=== PATIENT | female | born 1960 | race Hispanic/Latino ===

== ENCOUNTER 2023-07-14 19:49 | Inpatient (IN) | payer OTHER ==
[~2023-07-14] VITALS: Ht 144.8 cm; Wt 74.5 kg
[2023-07-14 22:05] LABS: APPEARANCE,URINE CLEAR (CLEAR); BILIRUBIN,URINE NEGATIVE (NEGATIVE); COLOR,URINE YELLOW (YELLOW); GLUCOSE, URINE (UA) 500 mg/dL (NEGATIVE); KETONES,URINE >=80 mg/dL (NEGATIVE); LEUKOCYTE ESTERASE ,URINE NEGATIVE Leu/uL (NEGATIVE); NITRATE,URINE NEGATIVE (NEGATIVE); OCCULT BLOOD,URINE SMALL (NEGATIVE); PROTEIN,URINE 30 mg/dL (NEGATIVE)
[2023-07-14 22:06] LABS: ADD UA MICROSCOPIC YES
[2023-07-14 22:08] LABS: BACTERIA,URINE RARE /HPF (None Seen); MUCUS,URINE RARE LPF (None Seen); SQUAMOUS EPITHELIAL CELL,UR RARE /HPF (0-2)
[2023-07-15 02:56] LABS: BASOPHILS # (AUTO) 0.07 K/uL (0.00-0.20); BASOPHILS % (AUTO) 0.5 % (0.0-5.0); HEMATOCRIT 33.6 % (36-48); IMMATURE GRANULOCYTE ABSOLUTE 0.22 K/uL (0-1); LYMPHOCYTES # (AUTO) 3.1 K/uL (1.0-4.8); LYMPHOCYTES % (AUTO) 19.9 % (21.0-51.0); MEAN CORPUSCULAR HEMOGLOBIN 27.2 pg (27.0-33.0); MEAN CORPUSCULAR HGB CONC 33.9 g/dL (32.0-36.0); MEAN CORPUSCULAR VOLUME 80.2 fL (79-99); MONOCYTES # (AUTO) 0.5 K/uL (0.1-1.0); MONOCYTES % (AUTO) 2.9 % (3.0-13.0); NEUTROPHILS # (AUTO) 11.6 K/uL (1.8-7.7); NEUTROPHILS % (AUTO) 75.3 % (40.0-77.0); PLATELET COUNT (AUTO) 145 K/uL (130-400); RED BLOOD CELL COUNT(AUTO) 4.19 MIL/uL (4.00-5.50); RED CELL DISTRIBUTION WIDTH 14.7 % (11.0-15.5); WHITE BLOOD COUNT (AUTO) 15.4 K/uL (4.8-10.8)
[2023-07-15 02:59] LABS: CREATININE 0.6 mg/dL (0.5-1.5); POTASSIUM 3.2 mmol/L (3.5-5.1)
[2023-07-15 03:04] LABS: ALBUMIN 2.3 g/dL (3.5-5.0); BILIRUBIN,TOTAL 0.5 mg/dL (0.2-1.0); TOTAL PROTEIN, SERUM 6.4 g/dL (6.0-8.3)
[2023-07-15] MEDS: ACETAMINOPHEN 325 MG TAB PO ONE (03:42)
[2023-07-15] MEDS: METOCLOPRAMIDE 10 MG/2 ML VIAL IVP ONE (05:42)
[2023-07-15] MEDS: KETOROLAC 15MG/ML VIAL (15MG/ML) IV ONE (05:42)
[2023-07-15] MEDS: FAMOTIDINE 20MG VIAL IV ONE (05:42)
[2023-07-15] MEDS: 0.9%NACL 1000ML 2,205 ML IV ONE (06:53)
[2023-07-15] MEDS: CEFTRIAXONE 2GM VIAL IVPB ONE (06:53)
[2023-07-15] MEDS ORDERED: CEFTRIAXONE 2GM VIAL IVPB ONE (09:30)
[2023-07-15] MEDS ORDERED: ACETAMINOPHEN WITH CODEINE 1 TAB TAB PO PRN (11:00)
[2023-07-15] MEDS: LACTATED RINGERS 1000ML 1,000 ML IV ONE (11:45)
[2023-07-15] MEDS: LACTATED RINGERS 1000ML 1,000 ML IV SCH (12:33)
[2023-07-15] MEDS: ZOSYN 3.375GM+NS 50ML 50 ML IV SCH (14:36)
[2023-07-15 15:20] VITALS: BP 149/85; PULSE 117; RESP 18
[2023-07-15 15:30] VITALS: O2SAT 96
[2023-07-15] MEDS ORDERED: LISI2.5T13 PO (16:02)
[2023-07-15] MEDS ORDERED: ATOR40TA69 PO (16:02)
[2023-07-15] MEDS ORDERED: GLIM4TAB36 PO (16:02)
[2023-07-15] MEDS ORDERED: SUMA100T16 PO (16:02)
[2023-07-15] MEDS: ACETAMINOPHEN WITH CODEINE 1 TAB TAB PO PRN (16:51)
[2023-07-15] MEDS ORDERED: POTASSIUM CHLORIDE 10% ELIXIR 20 MEQ/15 ML UDCUP PO PRN (19:00)
[2023-07-15 19:46] VITALS: BP 126/66; PULSE 100; RESP 17
[2023-07-15] MEDS: INSULIN HUMULIN R 100 UNIT/ML 3ML SQ SCH (21:10)
[2023-07-15] MEDS: KCL 20 MEQ ERTAB PO PRN (21:11)
[2023-07-15 23:44] VITALS: BP 123/62; PULSE 104; RESP 17
[2023-07-16] VITALS (8 sets, daily range): BP systolic 103–134; BP diastolic 61–81; PULSE 91–118; RESP 17–22; O2SAT 94–96
[2023-07-16 06:10] LABS: MEAN CORPUSCULAR HEMOGLOBIN 27.3 pg (27.0-33.0); MEAN CORPUSCULAR HGB CONC 33.2 g/dL (32.0-36.0); MEAN CORPUSCULAR VOLUME 82.1 fL (79-99); RED BLOOD CELL COUNT(AUTO) 4.14 MIL/uL (4.00-5.50); WHITE BLOOD COUNT (AUTO) 16.1 K/uL (4.8-10.8)
[2023-07-16 06:24] LABS: ALBUMIN 1.9 g/dL (3.5-5.0); BILIRUBIN,TOTAL 0.6 mg/dL (0.2-1.0); CREATININE 0.5 mg/dL (0.5-1.5); MAGNESIUM 1.5 mg/dL (1.80-2.40); POTASSIUM 3.5 mmol/L (3.5-5.1); TOTAL PROTEIN, SERUM 5.9 g/dL (6.0-8.3)
[2023-07-16] MEDS: ENOXAPARIN SODIUM 40 MG/0.4 ML SYRINGE SQ SCH ×2 (09:00)
[2023-07-16] MEDS ORDERED: KCL 20 MEQ ERTAB PO PRN (16:30)
[2023-07-16] MEDS ORDERED: POTASSIUM CHLORIDE 10% ELIXIR 20 MEQ/15 ML UDCUP PO PRN (16:30)
[2023-07-16] MEDS ORDERED: POTASSIUM CHLORIDE 20MEQ/100ML 100 ML IV PRN (16:30)
[2023-07-16] MEDS: SUMATRIPTAN SUCCINATE 100 MG PO PRN (16:32)
[2023-07-16] MEDS: LACTULOSE 20 GM/30 ML UDCUP PO PRN (17:35)
[2023-07-16] MEDS: MAGNESIUM 2GM PREMIX 50ML 50 ML IV PRN (17:52)
[2023-07-16] MEDS: ATORVASTATIN 40 MG TABLET PO SCH (20:18)
[2023-07-16] MEDS: LISINOPRIL 2.5 MG TABLET PO SCH (20:18)
[2023-07-17] VITALS (8 sets, daily range): BP systolic 105–148; BP diastolic 61–85; PULSE 87–106; RESP 16–20; O2SAT 95–96
[2023-07-17 06:16] LABS: HEMATOCRIT 31.6 % (36-48); MEAN CORPUSCULAR HEMOGLOBIN 26.9 pg (27.0-33.0); MEAN CORPUSCULAR HGB CONC 32.3 g/dL (32.0-36.0); MEAN CORPUSCULAR VOLUME 83.4 fL (79-99); RED BLOOD CELL COUNT(AUTO) 3.79 MIL/uL (4.00-5.50); RED CELL DISTRIBUTION WIDTH 15.6 % (11.0-15.5); WHITE BLOOD COUNT (AUTO) 15.5 K/uL (4.8-10.8)
[2023-07-17 06:43] LABS: CREATININE 0.6 mg/dL (0.5-1.5)
[2023-07-17 07:07] LABS: HEMOGLOBIN A1C 11.5 % (4.0-6.0)
[2023-07-17 07:39] LABS: POTASSIUM 2.9 mmol/L (3.5-5.1)
[2023-07-17] MEDS: GLIMEPIRIDE 2 MG TABLET PO SCH (07:46)
[2023-07-17] MEDS: ACETAMINOPHEN 500 MG TABLET PO ONE (11:38)
[2023-07-17] MEDS: DOXYCYCLINE 100MG+NS 250ML 250 ML IV SCH (12:37)
[2023-07-17] MEDS: POTASSIUM CHLORIDE 20MEQ/100ML 100 ML IV PRN (16:58)
[2023-07-17] MEDS: ENOXAPARIN SODIUM 40 MG/0.4 ML SYRINGE SQ SCH (18:21)
[2023-07-18] VITALS (9 sets, daily range): BP systolic 128–148; BP diastolic 74–97; PULSE 66–94; RESP 18–20; TEMP 99.5; O2SAT 95–97
[2023-07-18] MEDS: ACETAMINOPHEN 500 MG TABLET PO PRN (03:51)
[2023-07-18 10:25] LABS: BASOPHILS # (AUTO) 0.06 K/uL (0.00-0.20); BASOPHILS % (AUTO) 0.4 % (0.0-5.0); EOSINOPHILS # (AUTO) 0.04 K/uL (0.00-0.70); EOSINOPHILS % (AUTO) 0.3 % (0.0-8.0); HEMATOCRIT 31.7 % (36-48); IMMATURE GRANULOCYTE ABSOLUTE 0.17 K/uL (0-1); LYMPHOCYTES % (AUTO) 29.2 % (21.0-51.0); MEAN CORPUSCULAR HEMOGLOBIN 26.9 pg (27.0-33.0); MEAN CORPUSCULAR HGB CONC 33.1 g/dL (32.0-36.0); MEAN CORPUSCULAR VOLUME 81.1 fL (79-99); MONOCYTES # (AUTO) 0.7 K/uL (0.1-1.0); MONOCYTES % (AUTO) 4.8 % (3.0-13.0); NEUTROPHILS # (AUTO) 8.7 K/uL (1.8-7.7); NEUTROPHILS % (AUTO) 64.1 % (40.0-77.0); PLATELET COUNT (AUTO) 187 K/uL (130-400); RED BLOOD CELL COUNT(AUTO) 3.91 MIL/uL (4.00-5.50); RED CELL DISTRIBUTION WIDTH 15.5 % (11.0-15.5); WHITE BLOOD COUNT (AUTO) 13.7 K/uL (4.8-10.8)
[2023-07-18 10:33] LABS: ALBUMIN 1.7 g/dL (3.5-5.0); BILIRUBIN,TOTAL 0.7 mg/dL (0.2-1.0); CREATININE 0.5 mg/dL (0.5-1.5); MAGNESIUM 1.6 mg/dL (1.80-2.40); POTASSIUM 3.1 mmol/L (3.5-5.1)
[2023-07-18 12:27] LABS: BAND NEUTROPHILS % (MANUAL) 18 % (0-2); LYMPHOCYTES % (MANUAL) 19 % (22-44); MAN.DIFF COMMENT-IMPRESSION MANUAL DIFFERENTIAL; MONOCYTES % (MANUAL) 12 % (2-9); PLATELET MORPHOLOGY COMMENT ADEQUATE; SEGMENTED NEUTROPHILS % 51 % (40-70); TOTAL CELLS COUNTED 100
[2023-07-19 04:00] VITALS: BP 142/79; PULSE 86; RESP 18
[2023-07-19 05:58] LABS: BASOPHILS # (AUTO) 0.07 K/uL (0.00-0.20); BASOPHILS % (AUTO) 0.6 % (0.0-5.0); EOSINOPHILS # (AUTO) 0.07 K/uL (0.00-0.70); EOSINOPHILS % (AUTO) 0.6 % (0.0-8.0); IMMATURE GRANULOCYTE ABSOLUTE 0.15 K/uL (0-1); LYMPHOCYTES # (AUTO) 5.3 K/uL (1.0-4.8); LYMPHOCYTES % (AUTO) 44.4 % (21.0-51.0); MEAN CORPUSCULAR HEMOGLOBIN 26.7 pg (27.0-33.0); MEAN CORPUSCULAR HGB CONC 32.8 g/dL (32.0-36.0); MEAN CORPUSCULAR VOLUME 81.4 fL (79-99); MONOCYTES # (AUTO) 0.9 K/uL (0.1-1.0); MONOCYTES % (AUTO) 7.4 % (3.0-13.0); NEUTROPHILS # (AUTO) 5.5 K/uL (1.8-7.7); NEUTROPHILS % (AUTO) 45.7 % (40.0-77.0); PLATELET COUNT (AUTO) 220 K/uL (130-400); RED BLOOD CELL COUNT(AUTO) 3.93 MIL/uL (4.00-5.50); RED CELL DISTRIBUTION WIDTH 15.4 % (11.0-15.5)
[2023-07-19 06:16] LABS: CREATININE 0.5 mg/dL (0.5-1.5)
[2023-07-19 07:49] VITALS: O2SAT 97
[2023-07-19 08:00] VITALS: BP 148/85; PULSE 83; RESP 16
[2023-07-19 12:00] VITALS: BP 150/79; PULSE 91; RESP 16
[2023-07-19] MEDS: POTASSIUM CHLORIDE 10% ELIXIR 20 MEQ/15 ML UDCUP PO ONE (13:56)
[2023-07-19] MEDS ORDERED: DOXY100T2 PO (13:57)
[2023-07-19 16:00] VITALS: BP 145/77; PULSE 87; RESP 16
== END 2023-07-19 17:20 | disposition home or self-care (01) | DRG 872 ==
LOC: EDH 19:49 → EDHIP 19:50 → 3DH 07-15 15:14
PROVIDERS: ADMIT Internal Medicine; ATTEND Internal Medicine
DX: A41.9 Sepsis, unspecified organism (principal); A75.9 Typhus fever, unspecified; E44.1 Mild protein-calorie malnutrition; N39.0 Urinary tract infection, site not specified; E87.1 Hypo-osmolality and hyponatremia; E11.9 Type 2 diabetes mellitus without complications; N83.201 Unspecified ovarian cyst, right side; E66.9 Obesity, unspecified; E78.00 Pure hypercholesterolemia, unspecified; E86.0 Dehydration; E87.6 Hypokalemia; G43.909 Migraine, unspecified, not intractable, without status migrainosus; I10 Essential (primary) hypertension; Z68.35 Body mass index [BMI] 35.0-35.9, adult
CPT/HCPCS: 36415; 71045; 74176; 80048; 80053; 81001; 82948; 83036; 83605; 83690; 83735; 85025; 85027; 87040; 87088; G0378; J0696; J1650; J1815; J1885; J2543; J2765; J3475; J3480; J3490; J7030; J7120